=== PATIENT | female | born 1995 | race Caucasian/White ===

== ENCOUNTER 2020-05-22 22:01 | Emergency (ER) | payer BC, SELFPAY ==
[2020-05-22] MEDS ORDERED: Sodium Chloride 0.9% 1,000 ML ONE (22:34)
[2020-05-22] MEDS ORDERED: Promethazine HCl 25 MG/ML VIAL ONE (22:34)
[2020-05-22] MEDS ORDERED: Morphine 4 MG/ML VIAL ONE ×2 (22:34→23:37)
[2020-05-22 22:37] LABS: #Basophils 0.1 thou/uL (0.0-0.2); #Lymphocytes 2.1 thou/uL (1.20-3.40); #Monocytes 0.6 thou/uL (0.11-0.59); #Neutrophils 5.4 thou/uL (1.40-6.50); %Basophils 0.8 % (0.0-1.0); %Eosinophils 0.3 % (0.0-10.0); %Lymphocytes 25.4 % (21.0-51.0); %Monocytes 7.1 % (0.0-10.0); %Neutrophils 66.4 % (42.0-75.0); Hemoglobin 13.2 g/dL (12.0-16.0); Mean Corpuscular HGB CONC 30.2 g/dL (32.0-36.0); Mean Corpuscular Hemoglobin 26.4 pg (27.0-31.0); Mean Corpuscular Volume 87.3 fL (78.0-98.0); Mean Platelet Volume 7.7 fL (7.4-10.4); Platelet Count 314 thou/uL (130-400); RBC Distribution Width 13.5 % (11.5-14.5); Red Blood Cell (RBC) Count 5.01 mill/uL (4.20-5.40); White Blood Cell (WBC) Count 8.1 thou/uL (4.8-10.8)
[2020-05-22 22:53] LABS: BHCG - Serum Negative (NEGATIVE); Pregs Control Bar Appear? YES (CONTROL BAR)
[2020-05-22 23:23] LABS: Bilirubin Negative (Negative); Blood, Urine Trace (Negative); Clarity Clear (Clear); Glucose, Urine (Dipstick) Negative (Negative); Ketone, Urine Negative (Negative); Leukocyte Negative (Negative); Nitrite Negative (Negative); Protein, Urine (Dipstick) Negative (Neg-Trace); Urobilinogen 0.2 mg/dL (Less than 2)
[2020-05-22 23:31] LABS: Wet Prep Clue Cells Clue Cells PRESENT (None Seen); Wet Prep Spermatozoa 2nd Revie Agree with result (None Seen); Wet Prep Trichomonas Trichomonas Absent (None Seen)
[2020-05-22 23:32] LABS: Bacteria/HPF 1+ HPF (None Seen); Specific Gravity, Urine 1.027 (1.002-1.036); WBC/HPF 0-3 HPF (0-3)
[2020-05-23 21:52] LABS: Chlamydia by PCR Inconclusive (NotDetected); GC by PCR Inconclusive (NotDetected)
== END 2020-05-23 00:20 | disposition short-term general hospital (02) ==
LOC: NAV ERS 22:01
DX: R10.2 Pelvic and perineal pain (principal); R73.03 Prediabetes; F98.8 Other specified behavioral and emotional disorders with onset usually occurring in childhood and adolescence; F41.9 Anxiety disorder, unspecified; F32.9 Major depressive disorder, single episode, unspecified; G47.00 Insomnia, unspecified; F43.10 Post-traumatic stress disorder, unspecified; E66.9 Obesity, unspecified; Z79.899 Other long term (current) drug therapy
CPT/HCPCS: 36415; 51701; 81003; 81015; 84703; 85025; 87210; 87491; 87591; 96365; 96375; 96376; J2270; J2550; J7050

== ENCOUNTER 2020-07-20 01:05 | Emergency (ER) | payer BC ==
[2020-07-20] MEDS ORDERED: methylPREDNISolone Acetate 40 mg/ml Vial ONE (01:19)
[2020-07-20] MEDS ORDERED: Lorazepam 0.5 MG TAB ONE (01:39)
[2020-07-20] MEDS ORDERED: Racepinephrine 2.25% 0.5 ML NEB ONE (01:39)
== END 2020-07-20 02:35 | disposition home or self-care (01) ==
LOC: NAV ERS 01:05
DX: R06.1 Stridor (principal)
CPT/HCPCS: 94640; 94644; 96372; J2920; J7620

== ENCOUNTER 2020-07-21 01:44 | Emergency (ER) | payer BC ==
[2020-07-21] MEDS ORDERED: methylPREDNISolone Sod Succ/PF 125 MG/2 ML VIAL ONE (02:05)
[2020-07-21] MEDS ORDERED: Lorazepam 2 MG/ML VIAL ONE (02:05)
[2020-07-21] MEDS ORDERED: Ziprasidone 20 MG VIAL ONE (02:50)
[2020-07-21] MEDS ORDERED: Sterile Water 10 ML ONE (02:50)
== END 2020-07-21 03:12 | disposition home or self-care (01) ==
LOC: NAV ERS 01:44
DX: F41.9 Anxiety disorder, unspecified (principal); R06.02 Shortness of breath
CPT/HCPCS: 96372; 99284; J2060; J2930; J3486

== ENCOUNTER 2020-09-20 09:09 | Emergency (ER) | payer BC ==
[2020-09-20] MEDS ORDERED: Ondansetron ODT 4 MG TAB ONE (10:25)
[2020-09-21 20:30] LABS: SARS-CoV-2 MS2 Positive; SARS-CoV-2 N Gene Negative; SARS-CoV-2 S Gene Negative; SARS-CoV-2 by NAA Not Detected (NotDetected); SARS-CoV-2 orf1ab Negative
== END 2020-09-20 10:30 | disposition home or self-care (01) ==
LOC: NAV ERS 09:09
DX: J06.9 Acute upper respiratory infection, unspecified (principal); Z20.828 Contact with and (suspected) exposure to other viral communicable diseases; B34.9 Viral infection, unspecified; K21.9 Gastro-esophageal reflux disease without esophagitis; F41.9 Anxiety disorder, unspecified; F32.9 Major depressive disorder, single episode, unspecified; Z87.891 Personal history of nicotine dependence; Z79.899 Other long term (current) drug therapy
CPT/HCPCS: 87635; 87804; 99283; Q0162; U0003

== ENCOUNTER 2020-12-31 19:30 | Emergency (ER) | payer BC ==
[2020-12-31] MEDS ORDERED: Morphine 4 MG/ML VIAL ONE ×2 (20:02→20:34)
[2020-12-31] MEDS ORDERED: Ondansetron PF 4 MG/2 ML Vial ONE (20:02)
[2020-12-31 20:35] LABS: Bilirubin Negative (Negative); Blood, Urine Small (Negative); Clarity Clear (Clear); Glucose, Urine (Dipstick) Negative (Negative); Ketone, Urine Negative (Negative); Leukocyte Negative (Negative); Nitrite Negative (Negative); Protein, Urine (Dipstick) 30 mg/dL (Neg-Trace); Specific Gravity, Urine 1.025 (1.005-1.030); Urobilinogen 0.2 mg/dL (Less than 2)
[2020-12-31 20:39] LABS: Pregnancy Test - Urine (BHCG) Negative (Negative)
[2020-12-31 20:40] LABS: Pregu Control Background? CLEAR/WHITE (CLR/WHITE); Pregu Control Bar Appear? YES (CONTROL BAR); Specific Gravity 1.032 (1.002-1.036)
[2020-12-31 20:41] LABS: RBC/HPF 0-3 HPF (0-3)
[2020-12-31 20:42] LABS: Bacteria/HPF Rare-Few HPF (None Seen); Squamous Epithelial 0-3 HPF (0-3); WBC/HPF 0-3 HPF (0-3)
[2020-12-31] MEDS ORDERED: Ketorolac Tromethamine 30 MG/ML VIAL ONE (20:58)
== END 2020-12-31 21:46 | disposition short-term general hospital (02) ==
LOC: NAV ERS 19:30
DX: R10.2 Pelvic and perineal pain (principal); K21.9 Gastro-esophageal reflux disease without esophagitis; G47.30 Sleep apnea, unspecified; Z79.51 Long term (current) use of inhaled steroids; Z79.899 Other long term (current) drug therapy
CPT/HCPCS: 81003; 81015; 81025; 96374; 96375; J1885; J2270; J2405